=== PATIENT | female | born 1940 | race Caucasian/White ===

== ENCOUNTER 2020-08-03 12:14 | Inpatient (IN) | payer OTHER, SELFPAY ==
[~2020-08-03] VITALS: Ht 160 cm; Wt 64.1 kg
[~2020-08-03 12:14] MED LIST: ERGO400T7 PO; FOLI-43 PO; METH2.5T PO; NORCO5 PO; PRED5TAB3 PO
[2020-08-03 12:17] VITALS: BP_SYST 152
--- NOTE | 2020-08-03 12:21 | NUR ---
ER Dr. Chase at bedside examining patient.
--- NOTE | 2020-08-03 12:21 | NUR ---
Patient to ER bed 06 to gown for evaluation. Side rails up.
[2020-08-03] MEDS ORDERED: HYDR-4273 PO (12:33)
[2020-08-03] MEDS ORDERED: LIP10 PO (12:33)
[2020-08-03] MEDS ORDERED: ZOLP10TA2 PO (12:33)
[2020-08-03] MEDS ORDERED: VIT1TABL67 PO (12:33)
[2020-08-03] MEDS ORDERED: VALS80TA2 PO (12:33)
[2020-08-03] MEDS ORDERED: METH2.5T PO (12:33)
[2020-08-03] MEDS ORDERED: ASPI-1155 PO (12:33)
[2020-08-03] MEDS ORDERED: METH2.5S PO (12:33)
[2020-08-03] MEDS ORDERED: PRED2.5T4 PO (12:33)
[2020-08-03] MEDS ORDERED: FOLI-43 PO (12:33)
[2020-08-03] MEDS ORDERED: SULF500T60 PO (12:33)
--- NOTE | 2020-08-03 12:33 | NUR ---
Medication reconciliation completed with information provided by patient. Any prior medication reconciliation on file was reviewed and corrected.
[2020-08-03 12:52] LABS: BASOPHILS % (AUTO) 0.3 % (0.0-2.0); EOSINOPHILS # (AUTO) 0.1 K/uL (0.0-0.4); EOSINOPHILS % (AUTO) 1.2 % (0.0-4.0); HEMATOCRIT 39.8 % (36-48); LYMPHOCYTES # (AUTO) 0.7 K/uL (1.0-5.5); LYMPHOCYTES % (AUTO) 9.6 % (20.5-51.5); MEAN CORPUSCULAR HEMOGLOBIN 34 pg (27-31); MEAN CORPUSCULAR HGB CONC 33 % (32-36); MEAN CORPUSCULAR VOLUME 103 fL (79.0-98.0); MONOCYTES # (AUTO) 0.5 K/uL (0.0-1.0); MONOCYTES % (AUTO) 7.8 % (1.7-9.3); NEUTROPHILS # (AUTO) 5.5 K/uL (1.8-7.7); NEUTROPHILS % (AUTO) 81.1 % (40.0-70.0); PLATELET COUNT (AUTO) 245 K/uL (130-430); RED BLOOD CELL COUNT(AUTO) 3.86 MIL/uL (4.2-6.2); RED CELL DISTRIBUTION WIDTH 17.4 % (9.0-15.0); WHITE BLOOD COUNT (AUTO) 6.8 K/uL (4.8-10.8)
--- NOTE | 2020-08-03 13:09 | NUR ---
Report recieved from TAVON Erwin for continuation of care. Patient is in her gurney resting. She states whenever she gets up, she feels SOB. 3+ pitting to bilateral lower extremities with redness.
[2020-08-03 13:23] LABS: ANION GAP 10 (5-15); ASPARTATE AMINOTRANSFERASE 26 U/L (10-37); CALCIUM 8.3 mg/dL (8.4-11.0); CHLORIDE 106 mmol/L (98-107); CREATININE 0.71 mg/dL (0.55-1.30); GLUCOSE 89 mg/dL (70-99); POTASSIUM 4.1 mmol/L (3.5-5.1); SODIUM SERUM 143 mmol/L (136-145); TOTAL BILIRUBIN 0.4 mg/dL (0.0-1.0); UREA NITROGEN, BLOOD 13 mg/dL (8-21)
[2020-08-03 13:24] LABS: ALANINE AMINOTRANSFERASE 32 U/L (12-78); ALBUMIN 3.7 g/dL (3.4-4.8)
[2020-08-03 13:51] LABS: C-REACTIVE PROTEIN QUANT 2.4 mg/dL (0-0.5)
[2020-08-03] MEDS ORDERED: predniSONE 20 MG TABLET PO ONE (14:15)
[2020-08-03] MEDS ORDERED: IPRATROPIUM BROM 0.5 MG/2.5 ML VIAL.NEB (ATROVENT) INH ONE (14:15)
[2020-08-03] MEDS ORDERED: ALBUTEROL SULFATE 0.083% 2.5 MG/3 ML VIAL.NEB INH ONE ×2 (14:15→14:42)
[2020-08-03] MEDS ORDERED: ALBUTEROL SULFATE 0.083% 2.5 MG/3 ML VIAL.NEB INH PRN (16:45)
[2020-08-03] MEDS ORDERED: ONDANSETRON HCL 4 MG/2 ML VIAL IVP PRN (16:45)
[2020-08-03] MEDS ORDERED: ACETAMINOPHEN 325 MG TABLET PO PRN (16:45)
[2020-08-03] MEDS ORDERED: ZOLPIDEM TARTRATE 5 MG TABLET PO PRN (16:45)
[2020-08-03] MEDS ORDERED: HYDROcodone/ACETAMIN 7.5-325 MG TAB PO SCH (16:45)
[2020-08-03] MEDS ORDERED: 0.45% NS 250 ML IV ONE (16:45)
[2020-08-03 17:32] VITALS: BP_SYST 133
[2020-08-03] MEDS: cefTRIAXone 1 GM IVPB PREMIX 50 ML IV SCH (17:58)
[2020-08-03] MEDS: AZITHROMYCIN 250 MG in NS 250 ML IV SCH (17:59)
--- NOTE | 2020-08-03 18:19 | NUR ---
Patient moved to hallway 3.
--- NOTE | 2020-08-03 18:22 | NUR ---
Report given to TAVON Erwin.
--- NOTE | 2020-08-03 18:23 | NUR ---
Called patient's friend, Charley, at her request at [phone].
--- NOTE | 2020-08-03 18:40 | NUR ---
SHARA TO ASSUME CARE, CALM, ALERT, SKIN WARM AND DRY. SITTING UP EATING MEAL. TOLERATING WELL.
--- NOTE | 2020-08-03 19:37 | NUR ---
CALM, ALERT, RESP UNLABORED, CLEAR MENTATION AND SPEECH, SKIN WARM AND DRY. DENIES CP/SOB
[2020-08-03] MEDS ORDERED: ENOXAPARIN SODIUM 40 MG/0.4 ML SYRINGE SUBCUT SCH (21:00)
[2020-08-03] MEDS: OSELTAMIVIR PHOSPHATE 75 MG CAPSULE PO SCH (21:21)
[2020-08-03] MEDS: FAMOTIDINE PF 20 MG/2 ML VIAL IVP SCH (21:22)
[2020-08-03] MEDS: methylPREDNISolone SOD SUCC 40 MG/ML VIAL IVP SCH (21:22)
[2020-08-03] MEDS: NORMAL SALINE 5 ML DISP.SYRIN IVF SCH (21:24)
[2020-08-03] MEDS: sulfASALAZINE 500 MG TABLET (AZULFIDINE) PO SCH (21:35)
[2020-08-03] MEDS: ASCORBIC ACID 500 MG TABLET PO SCH (21:35)
--- NOTE | 2020-08-03 22:43 | NUR ---
UP AMBULATING TO BATHROOM. STEADY GAIT
--- NOTE | 2020-08-03 23:04 | NUR ---
Received report from TAVON Erwin.
--- NOTE | 2020-08-03 23:22 | NUR ---
A-FIB ON MONITOR. EKG. PAGE TO
[2020-08-03] MEDS ORDERED: DILTIAZEM HCL 125 MG/25 ML VIAL IV ONE (23:38)
[2020-08-03] MEDS ORDERED: DILTIAZEM HCL 25 MG/5 ML VIAL IVP ONE (23:45)
--- NOTE | 2020-08-03 23:50 | NUR ---
SPOKE WITH NORA. ORDERS RECEIVED
--- NOTE | 2020-08-04 00:24 | NUR ---
PT MOVED TO BED 8, ATTACHED TO MONITOR
--- NOTE | 2020-08-04 00:32 | NUR ---
Provided [place] and Pillow for patient as request.
--- NOTE | 2020-08-04 00:43 | NUR ---
Patient is sleeping, HR 108, Oxygen 95 % [place] 3 L/min.
--- NOTE | 2020-08-04 00:58 | NUR ---
Spoke with daughter (Cristopher Chase) to update her status.
--- NOTE | 2020-08-04 02:13 | NUR ---
Patient will be admitted to care of . Admitted to TELE unit. Will go to room 115B. Belongings list completed. Complete and up to date summary report printed. SBAR report to be given at bedside with opportunity for questions.
[2020-08-04 02:30] VITALS: BP_SYST 148
--- NOTE | 2020-08-04 02:30 | NUR ---
ADMISSION NOTE Received patient from ER via gurkatelyn, received report from December RN. Patient admitted with diagnosis of Cellulitis, COPD, Flu. Received report that patient is positive for Influenza A and was negative for Covid rapid. Patient on Oxygen and desaturates quickly. Patient oriented to hospital routine, call light, toileting and safety-patient verbalized understanding.
--- NOTE | 2020-08-04 02:35 | NUR ---
INITIAL NOTES Patient resting, catching breath after going to the restroom without oxygen for a short time period. IV sites on Right arm patent, dressings c/d/i. Oriented patient to plan of care. Call light within reach, bed alarm on, bed at lowest position. Will continue to monitor.
--- NOTE | 2020-08-04 03:20 | NUR ---
RECEIVED REPORT THAT PCR OF COVID IS PENDING. PATIENT IN NEGATIVE PRESSURE ROOM AT THIS TIME.
--- NOTE | 2020-08-04 03:24 | NUR ---
CONSULTATION PAGED/CALLED Reason for Consultation: COPD Person Who was Notified: PAVAN Consulting Physician: JOANNA Supervisor Dumping Specialty: [] Ordering Physician: WALE
--- NOTE | 2020-08-04 07:20 | NUR ---
CLOSING NOTES PATIENT RESTING, NO SIGNS OF DISTRESS NOTED. IV SITE PATENT, NPO ALL NIGHT. ALL NEEDS MET THROUGHOUT SHIFT. WILL ENDORSE CARE TO ONCOMING SHIFT.
[2020-08-04 08:30] VITALS: BP_SYST 120
[2020-08-04] MEDS ORDERED: DILTIAZEM HCL 25 MG/5 ML VIAL IVP PRN (08:30)
--- NOTE | 2020-08-04 08:30 | NUR ---
Initial note: Patient is alert, oriented x4, HOONAH , On Oxygen 2 L/M via NC, no SOB, ambulates well to the bathroom but needs continuous Oxygen. Both lower legs are redness and swollen, edema +2.
[2020-08-04] MEDS ORDERED: VALSARTAN 80 MG TABLET (DIOVAN) PO SCH (09:00)
[2020-08-04] MEDS ORDERED: ENOXAPARIN SODIUM 40 MG/0.4 ML SYRINGE SUBCUT SCH (09:00)
[2020-08-04] MEDS: ASPIRIN 81 MG TAB.CHEW PO SCH (09:04)
[2020-08-04] MEDS: NORMAL SALINE 5 ML DISP.SYRIN IVF SCH ×3 (09:04→21:00)
[2020-08-04] MEDS: methylPREDNISolone SOD SUCC 40 MG/ML VIAL IVP SCH ×2 (09:04→21:00)
[2020-08-04] MEDS: FAMOTIDINE PF 20 MG/2 ML VIAL IVP SCH ×2 (09:04→21:00)
[2020-08-04] MEDS: ASCORBIC ACID 500 MG TABLET PO SCH ×2 (09:05→21:00)
[2020-08-04] MEDS: CHOLECALCIFEROL (VITAMIN D3) 5,000 UNIT TABLET PO SCH (09:05)
[2020-08-04] MEDS: ENOXAPARIN SODIUM 60 MG/0.6 ML SYRINGE SUBCUT SCH ×2 (09:05→21:00)
[2020-08-04] MEDS: LOSARTAN POTASSIUM 50 MG TABLET (COZAAR) PO SCH (09:06)
[2020-08-04] MEDS: FOLIC ACID 1 MG TABLET PO SCH (09:06)
[2020-08-04] MEDS: METOPROLOL TARTRATE 25 MG TABLET PO SCH ×2 (09:06→21:00)
[2020-08-04] MEDS: OSELTAMIVIR PHOSPHATE 75 MG CAPSULE PO SCH ×2 (09:06→21:00)
[2020-08-04] MEDS: sulfASALAZINE 500 MG TABLET (AZULFIDINE) PO SCH ×2 (09:06→21:00)
[2020-08-04] MEDS: ATORVASTATIN 10 MG TABLET PO SCH (09:06)
[2020-08-04 10:14] LABS: BASOPHILS % (AUTO) 0.1 % (0.0-2.0); HEMATOCRIT 42.9 % (36-48); HEMOGLOBIN 14.2 g/dL (12.0-16.0); LYMPHOCYTES # (AUTO) 0.6 K/uL (1.0-5.5); LYMPHOCYTES % (AUTO) 6.4 % (20.5-51.5); MEAN CORPUSCULAR HEMOGLOBIN 34 pg (27-31); MEAN CORPUSCULAR HGB CONC 33 % (32-36); MEAN CORPUSCULAR VOLUME 103 fL (79.0-98.0); MONOCYTES # (AUTO) 0.6 K/uL (0.0-1.0); MONOCYTES % (AUTO) 5.9 % (1.7-9.3); NEUTROPHILS # (AUTO) 8.6 K/uL (1.8-7.7); NEUTROPHILS % (AUTO) 87.6 % (40.0-70.0); PLATELET COUNT (AUTO) 276 K/uL (130-430); RED BLOOD CELL COUNT(AUTO) 4.16 MIL/uL (4.2-6.2); RED CELL DISTRIBUTION WIDTH 17.6 % (9.0-15.0); WHITE BLOOD COUNT (AUTO) 9.8 K/uL (4.8-10.8)
[2020-08-04 10:37] LABS: ALANINE AMINOTRANSFERASE 41 U/L (12-78); ALBUMIN 3.5 g/dL (3.4-4.8); ANION GAP 10 (5-15); ASPARTATE AMINOTRANSFERASE 37 U/L (10-37); CALCIUM 8.2 mg/dL (8.4-11.0); CHLORIDE 105 mmol/L (98-107); CREATININE 0.73 mg/dL (0.55-1.30); GLUCOSE 119 mg/dL (70-99); POTASSIUM 4.1 mmol/L (3.5-5.1); SODIUM SERUM 142 mmol/L (136-145); TOTAL BILIRUBIN 0.5 mg/dL (0.0-1.0); UREA NITROGEN, BLOOD 12 mg/dL (8-21)
[2020-08-04] MEDS ORDERED: AMIODARONE HCL 200 MG TABLET PO ONE (10:45)
--- NOTE | 2020-08-04 10:47 | NUR ---
INFORMED US JASWINDER FRANK RN, PLA TO GIVE 400 MG AMIODARONE STAT Addendum: 08/04/20 at 1049 by Ludivina Mccray MT/US PER DR MARSHALL
[2020-08-04] MEDS: FUROSEMIDE 20 MG/2 ML VIAL IVP SCH ×2 (10:52→21:00)
--- NOTE | 2020-08-04 11:52 | NUR ---
informed TAVON parra to tell TAVON LACY that pt is off monitor.
[2020-08-04 12:00] VITALS: BP_SYST 135
[2020-08-04] MEDS: cefTRIAXone 1 GM IVPB PREMIX 50 ML IV SCH (17:00)
[2020-08-04 17:06] VITALS: BP_SYST 125
[2020-08-04] MEDS: AZITHROMYCIN 250 MG in NS 250 ML IV SCH (18:07)
[2020-08-04 20:10] VITALS: BP_SYST 139
[2020-08-04] MEDS: AMIODARONE HCL 200 MG TABLET PO SCH (21:00)
[2020-08-05 00:10] VITALS: BP_SYST 144
[2020-08-05] MEDS: NORMAL SALINE 5 ML DISP.SYRIN IVF SCH ×3 (06:15→22:15)
[2020-08-05 08:00] VITALS: BP_SYST 155
[2020-08-05 08:18] LABS: BASOPHILS % (AUTO) 0.1 % (0.0-2.0); HEMATOCRIT 39.7 % (36-48); LYMPHOCYTES # (AUTO) 0.7 K/uL (1.0-5.5); LYMPHOCYTES % (AUTO) 3.9 % (20.5-51.5); MEAN CORPUSCULAR HEMOGLOBIN 34 pg (27-31); MEAN CORPUSCULAR HGB CONC 33 % (32-36); MEAN CORPUSCULAR VOLUME 103 fL (79.0-98.0); MONOCYTES # (AUTO) 1.1 K/uL (0.0-1.0); MONOCYTES % (AUTO) 6.2 % (1.7-9.3); NEUTROPHILS # (AUTO) 15.5 K/uL (1.8-7.7); NEUTROPHILS % (AUTO) 89.8 % (40.0-70.0); PLATELET COUNT (AUTO) 288 K/uL (130-430); RED BLOOD CELL COUNT(AUTO) 3.85 MIL/uL (4.2-6.2); RED CELL DISTRIBUTION WIDTH 17.4 % (9.0-15.0); WHITE BLOOD COUNT (AUTO) 17.3 K/uL (4.8-10.8)
[2020-08-05] MEDS: OSELTAMIVIR PHOSPHATE 75 MG CAPSULE PO SCH ×2 (08:44→22:15)
[2020-08-05] MEDS: CHOLECALCIFEROL (VITAMIN D3) 5,000 UNIT TABLET PO SCH (08:44)
[2020-08-05] MEDS: sulfASALAZINE 500 MG TABLET (AZULFIDINE) PO SCH ×2 (08:44→22:15)
[2020-08-05] MEDS: ASPIRIN 81 MG TAB.CHEW PO SCH (08:44)
[2020-08-05] MEDS: METOPROLOL TARTRATE 25 MG TABLET PO SCH ×2 (08:45→22:15)
[2020-08-05] MEDS: ATORVASTATIN 10 MG TABLET PO SCH (08:45)
[2020-08-05] MEDS: ASCORBIC ACID 500 MG TABLET PO SCH ×2 (08:45→22:15)
[2020-08-05] MEDS: FAMOTIDINE PF 20 MG/2 ML VIAL IVP SCH ×2 (08:46→22:15)
[2020-08-05] MEDS: AMIODARONE HCL 200 MG TABLET PO SCH ×2 (08:46→22:15)
[2020-08-05] MEDS: LOSARTAN POTASSIUM 50 MG TABLET (COZAAR) PO SCH (08:46)
[2020-08-05] MEDS: FOLIC ACID 1 MG TABLET PO SCH (08:46)
[2020-08-05] MEDS: FUROSEMIDE 20 MG/2 ML VIAL IVP SCH ×2 (08:47→22:15)
[2020-08-05] MEDS: methylPREDNISolone SOD SUCC 40 MG/ML VIAL IVP SCH ×2 (08:47→22:15)
[2020-08-05] MEDS: ENOXAPARIN SODIUM 60 MG/0.6 ML SYRINGE SUBCUT SCH (08:48)
[2020-08-05 08:49] LABS: ALANINE AMINOTRANSFERASE 64 U/L (12-78); ALBUMIN 3.5 g/dL (3.4-4.8); ANION GAP 9 (5-15); ASPARTATE AMINOTRANSFERASE 50 U/L (10-37); CALCIUM 8.4 mg/dL (8.4-11.0); CHLORIDE 104 mmol/L (98-107); CREATININE 0.76 mg/dL (0.55-1.30); GLUCOSE 111 mg/dL (70-99); POTASSIUM 3.8 mmol/L (3.5-5.1); SODIUM SERUM 143 mmol/L (136-145); THYROID STIMULATING HORMONE 0.49 uIu/mL (0.36-3.74); TOTAL BILIRUBIN 0.5 mg/dL (0.0-1.0); UREA NITROGEN, BLOOD 22 mg/dL (8-21)
--- NOTE | 2020-08-05 09:18 | NUR ---
PHYSICAL THERAPY EVALUATION WAS PERFORMED YESTERDAY. PLEASE REFER TO FOR DETAILS AND RECOMMENDATION TO USE THE FWW.
[2020-08-05 09:21] LABS: CHOLESTEROL 178 mg/dL (<200); HDL CHOLESTEROL 77 mg/dL (>55); LDL CHOLESTEROL 93 mg/dL (<100); TRIGLYCERIDES 84 mg/dL (30-150)
--- NOTE | 2020-08-05 14:50 | NUR ---
received report from felix castellano. pt stable at this time.
[2020-08-05] MEDS: cefTRIAXone 1 GM IVPB PREMIX 50 ML IV SCH (15:45)
[2020-08-05 16:00] VITALS: BP_SYST 144
[2020-08-05] MEDS: AZITHROMYCIN 250 MG in NS 250 ML IV SCH (17:50)
--- NOTE | 2020-08-05 17:50 | NUR ---
PT REPORTED FALL LAST NIGHT administered iv abx as ordered per md, education given, tolerated well. pt reported fall last night at around 1930, stated that she did not tell anyone. conversation: pt: "my bottom hurts." rn: "how come?" pt: "i fell last night, but i didn't tell anyone." rn: "oh no, why didn't you tell anyone? that's an important thing to tell us, we don't want you getting hurt. use the call light if you need us." pt: "i didn't want anyone getting in trouble." pt stated her bottom is "black and purple" and i asked her if i can see it, pt stated "okay but you can't tell anyone." emphasized to pt to not worry about anyone getting in trouble, and that her safety is our priority. pt consented to assess her bottom, bottom has ecchymosis noted and is firm, no skin break. stated to pt to use call light when getting out of bed, and told her that bed alarm will be turned on. pt verbalized understanding. TAVON Braysignals collector/analyst nurse aware.
--- NOTE | 2020-08-05 18:20 | NUR ---
assisted pt to bathroom with walker, tolerated well. assisted pt back to bed, tolerated well. bed alarm on. continue to monitor.
--- NOTE | 2020-08-05 19:20 | NUR ---
closing notes pt awake and alert. nonlabored breathing noted, receiving o2 at 2lpm via nasal cannula, tolerating well. iv line intact and patent, no signs of infiltration noted. no acute distress noted. all needs met. call light in reach. fall, aspiration, and isolation precautions in place. endorsed care to felix cordero including pt's stated fall last night. unable to take a photo during this shift, rn verbalized understanding.
[2020-08-05 20:00] VITALS: BP_SYST 158
--- NOTE | 2020-08-05 20:00 | NUR ---
RN ROUNDS/EDUCATION: Upon assessing patient she states she fell two nights ago but did not report fall to the nurse. Patient has a bruise on her right buttock. Patient does not recall how or what time fall happened and declined any pain at this time.
--- NOTE | 2020-08-05 21:00 | NUR ---
Patient's bed alarm went off. Upon entering room patient was out of bed and walking towards bathroom. Patient appears weak despite using walker. I reminded patient to use the call light for assistance before getting out of bed, she verbalized understanding and states will call. I assisted patient back to bed safely.
[2020-08-05] MEDS: APIXABAN 2.5 MG TABLET PO SCH (22:15)
[2020-08-06] VITALS: BP_SYST 149
--- NOTE | 2020-08-06 | NUR ---
RN ROUNDS: Patient's alarm went off once again. I reminded patient to use the call light for assistance. Patient states she does not find it necessary as she uses her walking. I re educated patient and informed her that we want to prevent injuries during her stay and due to weakness she needs further assistance, she verbalized understanding and states will use call light for assistance. Will continue to monitor patient.
[2020-08-06] MEDS: NORMAL SALINE 5 ML DISP.SYRIN IVF SCH (05:30)
--- NOTE | 2020-08-06 05:30 | NUR ---
RN ROUNDS: Upon entering room, the patient's bed alarm was went off. She was found on the other side of the bed walking around without her walker and did not use the call light. I assisted patient back to bed and reminded her about calling me for assistance. Patient states she will not call because she does not want our help. I reminded patient that her safety is our priority and placed call light next to her. I oriented patient to room and the use of call light. Bed alarm was turned back on.
--- NOTE | 2020-08-06 07:30 | NUR ---
CLOSING NOTES: Patient is in stable condition and with no injuries throughout shift. I have endorsed care to dayshift nurse and informed her of patient refusal to call for assistance.
[2020-08-06 08:00] VITALS: BP_SYST 154
--- NOTE | 2020-08-06 08:30 | NUR ---
Initial note: Patient is alert, oriented x4, On Oxygen 2 L/M via NC, no SOB. She ambulates well by her self to the bath room with a walker. Patient has fallen few night ago. She has bruises on he back, right hip, and right elbow.
[2020-08-06] MEDS: ATORVASTATIN 10 MG TABLET PO SCH (08:34)
[2020-08-06] MEDS: APIXABAN 2.5 MG TABLET PO SCH (08:35)
[2020-08-06] MEDS: sulfASALAZINE 500 MG TABLET (AZULFIDINE) PO SCH (08:36)
[2020-08-06] MEDS: FAMOTIDINE PF 20 MG/2 ML VIAL IVP SCH (08:37)
[2020-08-06] MEDS: FOLIC ACID 1 MG TABLET PO SCH (08:37)
[2020-08-06] MEDS: CHOLECALCIFEROL (VITAMIN D3) 5,000 UNIT TABLET PO SCH (08:38)
[2020-08-06] MEDS: ASCORBIC ACID 500 MG TABLET PO SCH (08:38)
[2020-08-06] MEDS: OSELTAMIVIR PHOSPHATE 75 MG CAPSULE PO SCH (08:41)
[2020-08-06] MEDS: methylPREDNISolone SOD SUCC 40 MG/ML VIAL IVP SCH (08:41)
[2020-08-06] MEDS: AMIODARONE HCL 200 MG TABLET PO SCH (09:00)
[2020-08-06] MEDS: FUROSEMIDE 20 MG/2 ML VIAL IVP SCH (09:00)
--- NOTE | 2020-08-06 09:00 | NUR ---
round: , Senior Project Coordinator, makes round, and states patient cleared to go home. Marcelo Davalos makes round the room. Inform him that the patient did fall the other night. MD saw the bruise on her right elbow and wants to do X-ray. But she said no , states she did that all the time. And she insisting to go home today, but Dr. Robertson wants her to stay 1 more day. She refuses and willing to sign AMA.
[2020-08-06] MEDS: METOPROLOL TARTRATE 25 MG TABLET PO SCH (09:01)
[2020-08-06] MEDS: LOSARTAN POTASSIUM 50 MG TABLET (COZAAR) PO SCH (09:01)
[2020-08-06] MEDS ORDERED: AZIT250T PO (09:16)
[2020-08-06] MEDS ORDERED: ALBMDI INH (09:16)
[2020-08-06] MEDS ORDERED: ASC500 PO (09:16)
[2020-08-06] MEDS ORDERED: CHOL500013 PO (09:16)
[2020-08-06] MEDS ORDERED: AMI200 PO (09:16)
[2020-08-06] MEDS ORDERED: DOXY100T2 PO (09:17)
[2020-08-06] MEDS ORDERED: FURO-150 PO (09:21)
[2020-08-06] MEDS ORDERED: DEC1 PO (09:21)
[2020-08-06] MEDS ORDERED: OSEL75CA PO (09:21)
--- NOTE | 2020-08-06 10:15 | NUR ---
IV sites removed, apply pressure dressing, no sign of bleeding.
--- NOTE | 2020-08-06 10:15 | NUR ---
AMA signed: Patient has signed AMA form. Patient's daughter,Kayley, has called and concern about the patient leaving AMA. She said she will call her brother to talk to the patient to change her mind to stay. Will F/U on the decision.
[2020-08-06 11:59] VITALS: BP_SYST 151
[2020-08-06 12:15] LABS: ALANINE AMINOTRANSFERASE 61 U/L (12-78); ALBUMIN 4.1 g/dL (3.4-4.8); ANION GAP 11 (5-15); ASPARTATE AMINOTRANSFERASE 31 U/L (10-37); CALCIUM 8.6 mg/dL (8.4-11.0); CHLORIDE 101 mmol/L (98-107); CREATININE 0.92 mg/dL (0.55-1.30); GLUCOSE 101 mg/dL (70-99); POTASSIUM 3.5 mmol/L (3.5-5.1); SODIUM SERUM 143 mmol/L (136-145); TOTAL BILIRUBIN 0.5 mg/dL (0.0-1.0); UREA NITROGEN, BLOOD 22 mg/dL (8-21)
[2020-08-06 12:35] VITALS: BP_SYST 151
--- NOTE | 2020-08-06 13:00 | NUR ---
UT home ordered: Marcelo Osuna has called and has ordered to UT patient home . He sent E-prescription to the pharmacy. Patient and her family are informed.
--- NOTE | 2020-08-06 14:15 | NUR ---
DC home: Patient's is in the front to bean picker machine operator the patient. Patient is stable .Give patient DC instruction, and medication reconciliation with verbalized understanding. Wheel the patient out to private vehicle with her as the form setter/driver.
== END 2020-08-06 14:15 | disposition home or self-care (01) | DRG 177 ==
LOC: SED 12:14 → STU 15:58
PROVIDERS: ADMIT Internal Medicine; ATTEND Internal Medicine
DX: U07.1 COVID-19 (principal); J96.01 Acute respiratory failure with hypoxia; J12.89 Other viral pneumonia; I48.20 Chronic atrial fibrillation, unspecified; J44.0 Chronic obstructive pulmonary disease with (acute) lower respiratory infection; J44.1 Chronic obstructive pulmonary disease with (acute) exacerbation; J91.8 Pleural effusion in other conditions classified elsewhere; J10.1 Influenza due to other identified influenza virus with other respiratory manifestations; G89.29 Other chronic pain; E78.5 Hyperlipidemia, unspecified; F03.90 Unspecified dementia, unspecified severity, without behavioral disturbance, psychotic disturbance, mood disturbance, and anxiety; I11.0 Hypertensive heart disease with heart failure; I48.0 Paroxysmal atrial fibrillation; M06.9 Rheumatoid arthritis, unspecified; I50.9 Heart failure, unspecified; Z87.891 Personal history of nicotine dependence; Z90.710 Acquired absence of both cervix and uterus
CPT/HCPCS: 36415; 71045; 80053; 80061; 83605; 83880; 84443-TC; 84484; 85025; 85379; 86140; 86710; 93005; 93306; 94640; G0378; G9035; J0456; J0696; J1030; J1650; J1940; J3490; J7050; J7512; J7613; U0003

== ENCOUNTER 2021-04-13 20:28 | Inpatient (IN) | payer OTHER, SELFPAY ==
[~2021-04-13] VITALS: Ht 167.6 cm; Wt 64.9 kg
[~2021-04-13 20:28] MED LIST changes: +ALBMDI INH; +AMIO200T66 PO; +ASC500 PO; +CHOL500013 PO; +DEC1 PO; +DOXY100T2 PO; +FURO-150 PO; +HYDR-4273 PO; +LIP10 PO; +METH2.5S PO; +OSEL75CA PO; +PRED2.5T4 PO; +SULF500T60 PO; +VALS80TA2 PO; +VIT1TABL67 PO; +ZIT250 PO; +ZOLP10TA2 PO
[2021-04-13 20:35] VITALS: BP_SYST 128
[2021-04-13] MEDS ORDERED: DILTIAZEM HCL 25 MG/5 ML VIAL IVP ONE ×2 (21:00→21:30)
[2021-04-13] MEDS ORDERED: APIX5TAB4 PO (21:09)
[2021-04-13] MEDS ORDERED: DILT30TA36 PO (21:09)
[2021-04-13] MEDS ORDERED: PRED10TA PO (21:09)
[2021-04-13] MEDS ORDERED: MELA5TAB21 PO (21:09)
[2021-04-13] MEDS ORDERED: METO25TA6 PO (21:09)
[2021-04-13] MEDS ORDERED: FURO-149 PO (21:09)
[2021-04-13] MEDS ORDERED: ZOLP5TAB2 PO (21:09)
[2021-04-13] MEDS ORDERED: NS 500 ML IV ONE (21:15)
[2021-04-13 21:50] LABS: BASOPHILS % (AUTO) 0.2 % (0.0-2.0); EOSINOPHILS % (AUTO) 0.1 % (0.0-4.0); HEMATOCRIT 32.6 % (36-48); HEMOGLOBIN 10.8 g/dL (12.0-16.0); LYMPHOCYTES # (AUTO) 0.7 K/uL (1.0-5.5); LYMPHOCYTES % (AUTO) 5.1 % (20.5-51.5); MEAN CORPUSCULAR HEMOGLOBIN 35 pg (27-31); MEAN CORPUSCULAR HGB CONC 33 % (32-36); MEAN CORPUSCULAR VOLUME 107 fL (79.0-98.0); MONOCYTES % (AUTO) 6.9 % (1.7-9.3); NEUTROPHILS # (AUTO) 12.2 K/uL (1.8-7.7); NEUTROPHILS % (AUTO) 87.7 % (40.0-70.0); PLATELET COUNT (AUTO) 409 K/uL (130-430); RED BLOOD CELL COUNT(AUTO) 3.05 MIL/uL (4.2-6.2); RED CELL DISTRIBUTION WIDTH 17.1 % (9.0-15.0); WHITE BLOOD COUNT (AUTO) 13.9 K/uL (4.8-10.8)
[2021-04-13 22:01] LABS: INR 1.4 (0.8-1.2); PROTHROMBIN TIME 14.7 SECS (9.5-12.5)
[2021-04-13 22:16] LABS: ANION GAP 6 (5-15); CALCIUM 9.1 mg/dL (8.4-11.0); CHLORIDE 96 mmol/L (98-107); CREATININE 0.99 mg/dL (0.55-1.30); GLUCOSE 136 mg/dL (70-99); POTASSIUM 3.9 mmol/L (3.5-5.1); SODIUM SERUM 136 mmol/L (136-145); UREA NITROGEN, BLOOD 24 mg/dL (8-21)
[2021-04-13 22:21] LABS: ALANINE AMINOTRANSFERASE 63 U/L (12-78); ASPARTATE AMINOTRANSFERASE 79 U/L (10-37); LACTATE DEHYDROGENASE 315 U/L (81-234); TOTAL BILIRUBIN 1.2 mg/dL (0.0-1.0)
[2021-04-13 22:37] LABS: C-REACTIVE PROTEIN QUANT 4.6 mg/dL (0-0.5)
[2021-04-13 22:44] LABS: FIBRINOGEN 349 mg/dL (200-400)
[2021-04-13] MEDS ORDERED: DILTIAZEM HCL 30 MG TABLET PO ONE (23:00)
[2021-04-13] MEDS ORDERED: FUROSEMIDE 20 MG/2 ML VIAL IVP ONE (23:00)
[2021-04-13 23:43] LABS: BILIRUBIN,URINE NEGATIVE (NEGATIVE); BLOOD, URINE NEGATIVE (NEGATIVE); CLARITY/URINE CLEAR (CLEAR); COLOR,URINE YELLOW (YELLOW); GLUCOSE,URINE NEGATIVE (NEGATIVE); KETONES,URINE NEGATIVE (NEGATIVE); LEUKOCYTE ESTERASE ,URINE NEGATIVE (NEGATIVE); NITRITE, URINE NEGATIVE (NEGATIVE); PROTEIN URINE NEGATIVE (NEGATIVE); UROBILINOGEN,URINE 0.2 (0.2-1.0)
[2021-04-14] MEDS ORDERED: HYDROcodone/ACETAMIN 5-325 MG TAB (NORCO/ VICODIN) PO PRN
[2021-04-14] MEDS ORDERED: NALOXONE HCL 0.4 MG/ML AMP (NARCAN) IVP PRN
[2021-04-14] MEDS ORDERED: AZITHROMYCIN 500 MG/VIAL (ZITHROMAX) IV ONE (00:07)
[2021-04-14] MEDS: cefTRIAXone 1 GM IVPB PREMIX 50 ML IV SCH (00:07)
[2021-04-14] MEDS: AZITHROMYCIN 500 MG in NS 250 ML IV SCH (00:07)
[2021-04-14] MEDS ORDERED: MELATONIN 3 MG TABLET PO PRN (00:15)
[2021-04-14 06:58] VITALS: BP_SYST 128
[2021-04-14 08:26] LABS: BASOPHILS % (AUTO) 0.3 % (0.0-2.0); EOSINOPHILS # (AUTO) 0.1 K/uL (0.0-0.4); EOSINOPHILS % (AUTO) 0.8 % (0.0-4.0); HEMATOCRIT 32.3 % (36-48); HEMOGLOBIN 10.6 g/dL (12.0-16.0); LYMPHOCYTES # (AUTO) 1.6 K/uL (1.0-5.5); LYMPHOCYTES % (AUTO) 14.4 % (20.5-51.5); MEAN CORPUSCULAR HEMOGLOBIN 35 pg (27-31); MEAN CORPUSCULAR HGB CONC 33 % (32-36); MEAN CORPUSCULAR VOLUME 107 fL (79.0-98.0); MONOCYTES # (AUTO) 0.9 K/uL (0.0-1.0); NEUTROPHILS # (AUTO) 8.6 K/uL (1.8-7.7); NEUTROPHILS % (AUTO) 76.5 % (40.0-70.0); PLATELET COUNT (AUTO) 378 K/uL (130-430); RED BLOOD CELL COUNT(AUTO) 3.03 MIL/uL (4.2-6.2); RED CELL DISTRIBUTION WIDTH 17.5 % (9.0-15.0); WHITE BLOOD COUNT (AUTO) 11.2 K/uL (4.8-10.8)
[2021-04-14] MEDS: METOPROLOL TARTRATE 25 MG TABLET PO SCH ×2 (08:28→20:19)
[2021-04-14] MEDS: DILTIAZEM HCL 30 MG TABLET PO SCH ×2 (08:28→20:18)
[2021-04-14] MEDS: FUROSEMIDE 40 MG TABLET PO SCH (08:29)
[2021-04-14] MEDS: predniSONE 10 MG TABLET PO SCH (08:30)
[2021-04-14] MEDS: FOLIC ACID 1 MG TABLET PO SCH (08:30)
[2021-04-14] MEDS: LOSARTAN POTASSIUM 50 MG TABLET (COZAAR) PO SCH (08:30)
[2021-04-14 08:31] LABS: ALANINE AMINOTRANSFERASE 85 U/L (12-78); ALBUMIN 2.8 g/dL (3.4-4.8); ANION GAP 6 (5-15); CALCIUM 8.4 mg/dL (8.4-11.0); CHLORIDE 98 mmol/L (98-107); CREATININE 0.82 mg/dL (0.55-1.30); GLUCOSE 100 mg/dL (70-99); POTASSIUM 3.5 mmol/L (3.5-5.1); SODIUM SERUM 140 mmol/L (136-145); TOTAL BILIRUBIN 0.7 mg/dL (0.0-1.0); UREA NITROGEN, BLOOD 20 mg/dL (8-21)
[2021-04-14] MEDS: APIXABAN 2.5 MG TABLET PO SCH ×2 (08:56→20:20)
[2021-04-14 09:02] LABS: ASPARTATE AMINOTRANSFERASE 124 U/L (10-37)
[2021-04-14 12:00] VITALS: BP_SYST 110
[2021-04-14 16:13] VITALS: BP_SYST 136
[2021-04-14 20:00] VITALS: BP_SYST 116
[2021-04-15] MEDS: AZITHROMYCIN 500 MG in NS 250 ML IV SCH (00:03)
[2021-04-15] MEDS: cefTRIAXone 1 GM IVPB PREMIX 50 ML IV SCH (00:03)
[2021-04-15 00:12] VITALS: BP_SYST 125
[2021-04-15] MEDS: ZOLPIDEM TARTRATE 5 MG TABLET PO PRN (01:27)
[2021-04-15 08:00] VITALS: BP_SYST 100
[2021-04-15] MEDS: FUROSEMIDE 40 MG TABLET PO SCH (08:52)
[2021-04-15] MEDS: LOSARTAN POTASSIUM 50 MG TABLET (COZAAR) PO SCH (08:52)
[2021-04-15] MEDS: APIXABAN 2.5 MG TABLET PO SCH ×2 (08:53→22:06)
[2021-04-15] MEDS: predniSONE 10 MG TABLET PO SCH (08:53)
[2021-04-15] MEDS: METOPROLOL TARTRATE 25 MG TABLET PO SCH ×2 (08:53→22:04)
[2021-04-15] MEDS: DILTIAZEM HCL 30 MG TABLET PO SCH ×2 (08:54→22:05)
[2021-04-15] MEDS: FOLIC ACID 1 MG TABLET PO SCH (08:55)
[2021-04-15] MEDS: ALBUTEROL MDI INHALATION 8 GM INH INH SCH (09:00)
[2021-04-15 11:37] VITALS: BP_SYST 100
[2021-04-15 15:37] VITALS: BP_SYST 99
[2021-04-15 19:55] VITALS: BP_SYST 120
[2021-04-16] VITALS: BP_SYST 117
[2021-04-16] MEDS: cefTRIAXone 1 GM IVPB PREMIX 50 ML IV SCH ×2 (00:17→23:51)
[2021-04-16] MEDS: AZITHROMYCIN 500 MG in NS 250 ML IV SCH ×2 (00:17→23:51)
[2021-04-16] MEDS: ZOLPIDEM TARTRATE 5 MG TABLET PO PRN (01:33)
[2021-04-16 06:52] LABS: BASOPHILS # (AUTO) 0.2 K/uL (0.0-0.2); EOSINOPHILS # (AUTO) 0.1 K/uL (0.0-0.4); EOSINOPHILS % (AUTO) 0.6 % (0.0-4.0); HEMATOCRIT 35.7 % (36-48); HEMOGLOBIN 11.4 g/dL (12.0-16.0); LYMPHOCYTES # (AUTO) 0.7 K/uL (1.0-5.5); LYMPHOCYTES % (AUTO) 3.9 % (20.5-51.5); MEAN CORPUSCULAR HEMOGLOBIN 35 pg (27-31); MEAN CORPUSCULAR HGB CONC 32 % (32-36); MEAN CORPUSCULAR VOLUME 109 fL (79.0-98.0); MONOCYTES # (AUTO) 1.1 K/uL (0.0-1.0); MONOCYTES % (AUTO) 5.9 % (1.7-9.3); NEUTROPHILS % (AUTO) 88.6 % (40.0-70.0); PLATELET COUNT (AUTO) 504 K/uL (130-430); RED BLOOD CELL COUNT(AUTO) 3.27 MIL/uL (4.2-6.2); RED CELL DISTRIBUTION WIDTH 17.3 % (9.0-15.0)
[2021-04-16] MEDS: FAMOTIDINE 20 MG TABLET PO SCH ×2 (07:57→21:46)
[2021-04-16] MEDS: methylPREDNISolone SOD SUCC 40 MG/ML VIAL IVP SCH ×2 (07:58→21:46)
[2021-04-16] MEDS: APIXABAN 2.5 MG TABLET PO SCH ×2 (07:58→21:47)
[2021-04-16] MEDS: FOLIC ACID 1 MG TABLET PO SCH (07:59)
[2021-04-16 08:00] VITALS: BP_SYST 114
[2021-04-16] MEDS: DILTIAZEM HCL 30 MG TABLET PO SCH ×2 (08:15→19:00)
[2021-04-16] MEDS: METOPROLOL TARTRATE 25 MG TABLET PO SCH ×2 (08:15→19:00)
[2021-04-16] MEDS: LOSARTAN POTASSIUM 50 MG TABLET (COZAAR) PO SCH (08:16)
[2021-04-16] MEDS: FUROSEMIDE 40 MG TABLET PO SCH (08:16)
[2021-04-16] MEDS: ALBUTEROL MDI INHALATION 8 GM INH INH SCH (08:21)
[2021-04-16 08:41] LABS: ALBUMIN 2.6 g/dL (3.4-4.8); ANION GAP 3 (5-15); CALCIUM 8.2 mg/dL (8.4-11.0); CHLORIDE 98 mmol/L (98-107); CREATININE 0.94 mg/dL (0.55-1.30); GLUCOSE 125 mg/dL (70-99); POTASSIUM 3.5 mmol/L (3.5-5.1); SODIUM SERUM 140 mmol/L (136-145); TOTAL BILIRUBIN 0.7 mg/dL (0.0-1.0); UREA NITROGEN, BLOOD 25 mg/dL (8-21)
[2021-04-16 08:52] LABS: ALANINE AMINOTRANSFERASE 272 U/L (12-78); ASPARTATE AMINOTRANSFERASE 290 U/L (10-37)
[2021-04-16 10:16] LABS: WHITE BLOOD COUNT (AUTO) 18.1 K/uL (4.8-10.8)
[2021-04-16 11:49] LABS: ERYTHROCYTE SEDIMENTATION RATE 8 MM/HR (0-20)
[2021-04-16 12:00] VITALS: BP_SYST 109
[2021-04-16 16:00] VITALS: BP_SYST 157
[2021-04-16 19:22] VITALS: BP_SYST 128
[2021-04-17 00:25] VITALS: BP_SYST 104
[2021-04-17] MEDS: ZOLPIDEM TARTRATE 5 MG TABLET PO PRN (01:58)
[2021-04-17 07:01] LABS: BASOPHILS % (AUTO) 0.1 % (0.0-2.0); HEMATOCRIT 33.8 % (36-48); HEMOGLOBIN 11.2 g/dL (12.0-16.0); LYMPHOCYTES # (AUTO) 0.4 K/uL (1.0-5.5); LYMPHOCYTES % (AUTO) 3.9 % (20.5-51.5); MEAN CORPUSCULAR HEMOGLOBIN 35 pg (27-31); MEAN CORPUSCULAR HGB CONC 33 % (32-36); MEAN CORPUSCULAR VOLUME 107 fL (79.0-98.0); MONOCYTES # (AUTO) 0.3 K/uL (0.0-1.0); MONOCYTES % (AUTO) 3.2 % (1.7-9.3); NEUTROPHILS # (AUTO) 9.8 K/uL (1.8-7.7); NEUTROPHILS % (AUTO) 92.8 % (40.0-70.0); PLATELET COUNT (AUTO) 451 K/uL (130-430); RED BLOOD CELL COUNT(AUTO) 3.16 MIL/uL (4.2-6.2); WHITE BLOOD COUNT (AUTO) 10.6 K/uL (4.8-10.8)
[2021-04-17 08:00] VITALS: BP_SYST 113
[2021-04-17] MEDS: ALBUTEROL MDI INHALATION 8 GM INH INH SCH (09:00)
[2021-04-17 10:03] LABS: ERYTHROCYTE SEDIMENTATION RATE 10 MM/HR (0-20)
[2021-04-17] MEDS: methylPREDNISolone SOD SUCC 40 MG/ML VIAL IVP SCH ×2 (10:19→20:12)
[2021-04-17 10:20] VITALS: BP_SYST 113
[2021-04-17] MEDS: FUROSEMIDE 40 MG TABLET PO SCH (10:20)
[2021-04-17] MEDS: METOPROLOL TARTRATE 25 MG TABLET PO SCH ×2 (10:24→20:13)
[2021-04-17] MEDS: FAMOTIDINE 20 MG TABLET PO SCH ×2 (10:24→20:12)
[2021-04-17] MEDS: DILTIAZEM HCL 30 MG TABLET PO SCH ×2 (10:25→20:14)
[2021-04-17] MEDS: LOSARTAN POTASSIUM 50 MG TABLET (COZAAR) PO SCH (10:26)
[2021-04-17] MEDS: APIXABAN 2.5 MG TABLET PO SCH ×2 (10:26→20:16)
[2021-04-17] MEDS: FOLIC ACID 1 MG TABLET PO SCH (10:28)
[2021-04-17 11:12] LABS: ALANINE AMINOTRANSFERASE 207 U/L (12-78); ALBUMIN 2.5 g/dL (3.4-4.8); ANION GAP 1 (5-15); ASPARTATE AMINOTRANSFERASE 107 U/L (10-37); C-REACTIVE PROTEIN QUANT 2.6 mg/dL (0-0.5); CALCIUM 8.3 mg/dL (8.4-11.0); CHLORIDE 99 mmol/L (98-107); CREATININE 0.75 mg/dL (0.55-1.30); GLUCOSE 120 mg/dL (70-99); POTASSIUM 3.2 mmol/L (3.5-5.1); SODIUM SERUM 140 mmol/L (136-145); TOTAL BILIRUBIN 0.8 mg/dL (0.0-1.0); UREA NITROGEN, BLOOD 24 mg/dL (8-21)
[2021-04-17] MEDS ORDERED: ROCPM1 IV (12:06)
[2021-04-17] MEDS ORDERED: AZIT500V2 IV (12:06)
[2021-04-17] MEDS ORDERED: PRED20TA PO (12:06)
[2021-04-17 13:27] VITALS: BP_SYST 110
[2021-04-17] MEDS ORDERED: POTASSIUM CHLORIDE 20 MEQ TAB.PRT.SR PO ONE (14:45)
[2021-04-17 16:06] VITALS: BP_SYST 134
[2021-04-17 20:19] VITALS: BP_SYST 126
[2021-04-17] MEDS: cefTRIAXone 1 GM IVPB PREMIX 50 ML IV SCH (23:08)
[2021-04-17] MEDS: AZITHROMYCIN 500 MG in NS 250 ML IV SCH (23:46)
[2021-04-18 00:41] VITALS: BP_SYST 128
[2021-04-18 07:15] LABS: BASOPHILS # (AUTO) 0.1 K/uL (0.0-0.2); BASOPHILS % (AUTO) 0.3 % (0.0-2.0); HEMATOCRIT 35.6 % (36-48); HEMOGLOBIN 11.7 g/dL (12.0-16.0); LYMPHOCYTES # (AUTO) 0.5 K/uL (1.0-5.5); LYMPHOCYTES % (AUTO) 2.3 % (20.5-51.5); MEAN CORPUSCULAR HEMOGLOBIN 35 pg (27-31); MEAN CORPUSCULAR HGB CONC 33 % (32-36); MEAN CORPUSCULAR VOLUME 105 fL (79.0-98.0); MONOCYTES # (AUTO) 0.7 K/uL (0.0-1.0); MONOCYTES % (AUTO) 3.3 % (1.7-9.3); NEUTROPHILS # (AUTO) 20.2 K/uL (1.8-7.7); PLATELET COUNT (AUTO) 489 K/uL (130-430); RED BLOOD CELL COUNT(AUTO) 3.39 MIL/uL (4.2-6.2); RED CELL DISTRIBUTION WIDTH 16.7 % (9.0-15.0); WHITE BLOOD COUNT (AUTO) 21.4 K/uL (4.8-10.8)
[2021-04-18 08:00] VITALS: BP_SYST 150
[2021-04-18 08:03] LABS: ANION GAP 6 (5-15); C-REACTIVE PROTEIN QUANT 1.2 mg/dL (0-0.5); CALCIUM 8.8 mg/dL (8.4-11.0); CHLORIDE 98 mmol/L (98-107); CREATININE 0.71 mg/dL (0.55-1.30); GLUCOSE 170 mg/dL (70-99); POTASSIUM 3.3 mmol/L (3.5-5.1); SODIUM SERUM 142 mmol/L (136-145); UREA NITROGEN, BLOOD 32 mg/dL (8-21)
[2021-04-18] MEDS: LOSARTAN POTASSIUM 50 MG TABLET (COZAAR) PO SCH (08:09)
[2021-04-18] MEDS: APIXABAN 2.5 MG TABLET PO SCH ×2 (08:10→21:21)
[2021-04-18] MEDS: FUROSEMIDE 40 MG TABLET PO SCH (08:10)
[2021-04-18] MEDS: FAMOTIDINE 20 MG TABLET PO SCH ×2 (08:10→21:28)
[2021-04-18] MEDS: METOPROLOL TARTRATE 25 MG TABLET PO SCH ×2 (08:10→21:19)
[2021-04-18] MEDS: methylPREDNISolone SOD SUCC 40 MG/ML VIAL IVP SCH (08:11)
[2021-04-18] MEDS: DILTIAZEM HCL 30 MG TABLET PO SCH ×2 (08:11→21:17)
[2021-04-18] MEDS: FOLIC ACID 1 MG TABLET PO SCH (08:13)
[2021-04-18] MEDS: ALBUTEROL MDI INHALATION 8 GM INH INH SCH (08:32)
[2021-04-18] MEDS ORDERED: POTASSIUM CHLORIDE 20 MEQ/PKT PACKET PO ONE (09:00)
[2021-04-18 10:51] LABS: ERYTHROCYTE SEDIMENTATION RATE 8 MM/HR (0-20)
[2021-04-18 12:20] LABS: NEUTROPHILS % (AUTO) 94.1 % (40.0-70.0)
[2021-04-18] MEDS ORDERED: MELATONIN 5 MG TABLET PO PRN (12:30)
[2021-04-18 12:55] VITALS: BP_SYST 135
[2021-04-18 16:20] VITALS: BP_SYST 125
[2021-04-18 19:00] VITALS: BP_SYST 146
[2021-04-18 20:00] VITALS: BP_SYST 146
[2021-04-18] MEDS: ACETAMINOPHEN 325 MG TABLET PO PRN (21:18)
[2021-04-18] MEDS: ZOLPIDEM TARTRATE 5 MG TABLET PO PRN (21:20)
[2021-04-19] MEDS: AZITHROMYCIN 500 MG in NS 250 ML IV SCH (00:40)
[2021-04-19 00:42] VITALS: BP_SYST 132
[2021-04-19] MEDS: cefTRIAXone 1 GM IVPB PREMIX 50 ML IV SCH (00:54)
[2021-04-19 07:43] LABS: ALANINE AMINOTRANSFERASE 147 U/L (12-78); ALBUMIN 2.7 g/dL (3.4-4.8); ANION GAP 1 (5-15); ASPARTATE AMINOTRANSFERASE 63 U/L (10-37); CALCIUM 8.7 mg/dL (8.4-11.0); CHLORIDE 101 mmol/L (98-107); CREATININE 0.74 mg/dL (0.55-1.30); GLUCOSE 149 mg/dL (70-99); SODIUM SERUM 146 mmol/L (136-145); TOTAL BILIRUBIN 0.4 mg/dL (0.0-1.0); UREA NITROGEN, BLOOD 37 mg/dL (8-21)
[2021-04-19 08:00] VITALS: BP_SYST 138
[2021-04-19] MEDS: FAMOTIDINE 20 MG TABLET PO SCH ×2 (08:04→21:06)
[2021-04-19] MEDS: LOSARTAN POTASSIUM 50 MG TABLET (COZAAR) PO SCH (08:04)
[2021-04-19] MEDS: DILTIAZEM HCL 30 MG TABLET PO SCH ×2 (08:04→21:01)
[2021-04-19] MEDS: METOPROLOL TARTRATE 25 MG TABLET PO SCH ×2 (08:04→21:04)
[2021-04-19] MEDS: FUROSEMIDE 40 MG TABLET PO SCH (08:05)
[2021-04-19] MEDS: FOLIC ACID 1 MG TABLET PO SCH (08:10)
[2021-04-19] MEDS: APIXABAN 2.5 MG TABLET PO SCH ×2 (08:11→21:03)
[2021-04-19] MEDS: ALBUTEROL SULFATE 0.083% 2.5 MG/3 ML VIAL.NEB INH PRN (08:30)
[2021-04-19] MEDS ORDERED: methylPREDNISolone SOD SUCC 40 MG/ML VIAL IVP SCH (09:00)
[2021-04-19 12:00] VITALS: BP_SYST 134
[2021-04-19 16:00] VITALS: BP_SYST 139
[2021-04-19 19:00] VITALS: BP_SYST 148
[2021-04-19 20:00] VITALS: BP_SYST 148
[2021-04-19] MEDS: ZOLPIDEM TARTRATE 5 MG TABLET PO PRN (21:01)
[2021-04-20] VITALS: BP_SYST 134
[2021-04-20] MEDS: cefTRIAXone 1 GM IVPB PREMIX 50 ML IV SCH (00:33)
[2021-04-20] MEDS: ALBUTEROL SULFATE 0.083% 2.5 MG/3 ML VIAL.NEB INH PRN ×2 (02:04→08:24)
[2021-04-20 06:48] LABS: BASOPHILS % (AUTO) 0.2 % (0.0-2.0); HEMATOCRIT 35.7 % (36-48); HEMOGLOBIN 11.4 g/dL (12.0-16.0); LYMPHOCYTES # (AUTO) 0.6 K/uL (1.0-5.5); LYMPHOCYTES % (AUTO) 3.2 % (20.5-51.5); MEAN CORPUSCULAR HEMOGLOBIN 34 pg (27-31); MEAN CORPUSCULAR HGB CONC 32 % (32-36); MEAN CORPUSCULAR VOLUME 105 fL (79.0-98.0); MONOCYTES % (AUTO) 5.5 % (1.7-9.3); NEUTROPHILS # (AUTO) 16.1 K/uL (1.8-7.7); PLATELET COUNT (AUTO) 383 K/uL (130-430); RED CELL DISTRIBUTION WIDTH 16.9 % (9.0-15.0); WHITE BLOOD COUNT (AUTO) 17.6 K/uL (4.8-10.8)
[2021-04-20 07:00] VITALS: BP_SYST 132
[2021-04-20 07:15] LABS: ALANINE AMINOTRANSFERASE 117 U/L (12-78); ALBUMIN 2.6 g/dL (3.4-4.8); ANION GAP 1 (5-15); ASPARTATE AMINOTRANSFERASE 46 U/L (10-37); CALCIUM 8.8 mg/dL (8.4-11.0); CHLORIDE 102 mmol/L (98-107); CREATININE 0.68 mg/dL (0.55-1.30); GLUCOSE 135 mg/dL (70-99); POTASSIUM 3.9 mmol/L (3.5-5.1); SODIUM SERUM 148 mmol/L (136-145); TOTAL BILIRUBIN 0.4 mg/dL (0.0-1.0); UREA NITROGEN, BLOOD 37 mg/dL (8-21)
[2021-04-20 07:40] LABS: NEUTROPHILS % (AUTO) 91.1 % (40.0-70.0)
[2021-04-20] MEDS: ALBUTEROL MDI INHALATION 8 GM INH INH SCH (08:23)
[2021-04-20] MEDS: METOPROLOL TARTRATE 25 MG TABLET PO SCH ×2 (10:19→21:02)
[2021-04-20] MEDS: methylPREDNISolone SOD SUCC 40 MG/ML VIAL IVP SCH (10:19)
[2021-04-20] MEDS: FOLIC ACID 1 MG TABLET PO SCH (10:20)
[2021-04-20] MEDS: LOSARTAN POTASSIUM 50 MG TABLET (COZAAR) PO SCH (10:21)
[2021-04-20] MEDS: FUROSEMIDE 40 MG TABLET PO SCH (10:22)
[2021-04-20] MEDS: DILTIAZEM HCL 30 MG TABLET PO SCH ×2 (10:22→21:03)
[2021-04-20] MEDS: FAMOTIDINE 20 MG TABLET PO SCH ×2 (10:23→21:02)
[2021-04-20] MEDS: APIXABAN 2.5 MG TABLET PO SCH ×2 (10:26→21:04)
[2021-04-20 12:00] VITALS: BP_SYST 137
[2021-04-20 16:44] VITALS: BP_SYST 133
[2021-04-20 19:23] LABS: BODY FLUID GLUCOSE 238 mg/dL; BODY FLUID TOTAL PROTEIN 1.3 g/dL
[2021-04-20 21:04] VITALS: BP_SYST 124
[2021-04-20] MEDS: ZOLPIDEM TARTRATE 5 MG TABLET PO PRN (21:04)
[2021-04-20 23:39] LABS: SOURCE/TYPE ,BODY FLUID PLEURAL
[2021-04-20 23:41] LABS: BF APPEARANCE UNSPUN SLIGHTLY HAZY (CLEAR); BODY FLUID SOURCE/ TYPE PLEURAL
[2021-04-20 23:42] LABS: APPEARANCE,SPUN,BODY FLUID CLEAR (CLEAR); BODY FLUID COLOR YELLOW (LT YELLOW); BODY FLUID TOTAL VOLUME 725 mL; RBC, BODY FLUID 664 /uL; WBC, BODY FLUID 356 /uL
[2021-04-20 23:43] LABS: EOSINOPHIL, BODY FLUID 0 %; LYMPHOCYTES, BODY FLUID 32 %; MONOCYTES,BODY FLUID 61 %; NEUTROPHIL, BODY FLUID 7 %
[2021-04-21 00:30] VITALS: BP_SYST 139
[2021-04-21 04:44] VITALS: BP_SYST 127
[2021-04-21 08:00] VITALS: BP_SYST 142
[2021-04-21] MEDS: DILTIAZEM HCL 30 MG TABLET PO SCH ×2 (09:00→21:52)
[2021-04-21] MEDS: LOSARTAN POTASSIUM 50 MG TABLET (COZAAR) PO SCH (09:01)
[2021-04-21] MEDS: methylPREDNISolone SOD SUCC 40 MG/ML VIAL IVP SCH (09:02)
[2021-04-21] MEDS: APIXABAN 2.5 MG TABLET PO SCH ×2 (09:04→21:53)
[2021-04-21] MEDS: FUROSEMIDE 40 MG TABLET PO SCH (09:05)
[2021-04-21] MEDS: FAMOTIDINE 20 MG TABLET PO SCH ×2 (09:19→21:52)
[2021-04-21] MEDS: FOLIC ACID 1 MG TABLET PO SCH (09:19)
[2021-04-21] MEDS: METOPROLOL TARTRATE 25 MG TABLET PO SCH ×2 (09:21→21:51)
[2021-04-21 11:31] VITALS: BP_SYST 141
[2021-04-21 16:07] VITALS: BP_SYST 126
[2021-04-21 19:00] VITALS: BP_SYST 122
[2021-04-21] MEDS: ZOLPIDEM TARTRATE 5 MG TABLET PO PRN (21:52)
[2021-04-22 00:26] VITALS: BP_SYST 121
[2021-04-22 07:41] VITALS: BP_SYST 144
[2021-04-22] MEDS: METOPROLOL TARTRATE 25 MG TABLET PO SCH ×2 (09:04→20:33)
[2021-04-22] MEDS: DILTIAZEM HCL 30 MG TABLET PO SCH ×2 (09:05→20:33)
[2021-04-22] MEDS: LOSARTAN POTASSIUM 50 MG TABLET (COZAAR) PO SCH (09:06)
[2021-04-22] MEDS: FAMOTIDINE 20 MG TABLET PO SCH ×2 (09:08→20:32)
[2021-04-22] MEDS: FUROSEMIDE 40 MG TABLET PO SCH (09:08)
[2021-04-22] MEDS: methylPREDNISolone SOD SUCC 40 MG/ML VIAL IVP SCH (09:08)
[2021-04-22] MEDS: APIXABAN 2.5 MG TABLET PO SCH ×2 (09:09→20:31)
[2021-04-22] MEDS: FOLIC ACID 1 MG TABLET PO SCH (09:19)
[2021-04-22 11:22] VITALS: BP_SYST 119
[2021-04-22 15:29] VITALS: BP_SYST 131
[2021-04-22 20:36] VITALS: BP_SYST 133
[2021-04-23] VITALS: BP_SYST 128
[2021-04-23 08:00] VITALS: BP_SYST 152
[2021-04-23 08:11] LABS: BASOPHILS % (AUTO) 0.2 % (0.0-2.0); HEMATOCRIT 37.2 % (36-48); HEMOGLOBIN 11.9 g/dL (12.0-16.0); LYMPHOCYTES # (AUTO) 0.5 K/uL (1.0-5.5); LYMPHOCYTES % (AUTO) 2.6 % (20.5-51.5); MEAN CORPUSCULAR HEMOGLOBIN 34 pg (27-31); MEAN CORPUSCULAR HGB CONC 32 % (32-36); MEAN CORPUSCULAR VOLUME 106 fL (79.0-98.0); MONOCYTES # (AUTO) 0.9 K/uL (0.0-1.0); MONOCYTES % (AUTO) 4.6 % (1.7-9.3); NEUTROPHILS # (AUTO) 18.1 K/uL (1.8-7.7); NEUTROPHILS % (AUTO) 92.6 % (40.0-70.0); PLATELET COUNT (AUTO) 343 K/uL (130-430); RED BLOOD CELL COUNT(AUTO) 3.51 MIL/uL (4.2-6.2); WHITE BLOOD COUNT (AUTO) 19.6 K/uL (4.8-10.8)
[2021-04-23] MEDS: ALBUTEROL MDI INHALATION 8 GM INH INH SCH (09:00)
[2021-04-23] MEDS: DILTIAZEM HCL 30 MG TABLET PO SCH ×2 (09:00→20:49)
[2021-04-23 09:19] LABS: ANION GAP 0 (5-15); CALCIUM 9.4 mg/dL (8.4-11.0); CHLORIDE 96 mmol/L (98-107); GLUCOSE 160 mg/dL (70-99); POTASSIUM 4.2 mmol/L (3.5-5.1); SODIUM SERUM 142 mmol/L (136-145); UREA NITROGEN, BLOOD 39 mg/dL (8-21)
[2021-04-23 10:01] VITALS: BP_SYST 128
[2021-04-23] MEDS: FOLIC ACID 1 MG TABLET PO SCH (11:13)
[2021-04-23] MEDS: methylPREDNISolone SOD SUCC 40 MG/ML VIAL IVP SCH (11:13)
[2021-04-23] MEDS: LOSARTAN POTASSIUM 50 MG TABLET (COZAAR) PO SCH (11:17)
[2021-04-23] MEDS: FAMOTIDINE 20 MG TABLET PO SCH ×2 (11:19→20:50)
[2021-04-23] MEDS: METOPROLOL TARTRATE 25 MG TABLET PO SCH ×2 (11:19→20:49)
[2021-04-23] MEDS: APIXABAN 2.5 MG TABLET PO SCH ×2 (11:21→20:51)
[2021-04-23 11:37] VITALS: BP_SYST 138
[2021-04-23 15:25] VITALS: BP_SYST 131
[2021-04-23 20:11] VITALS: BP_SYST 136
[2021-04-24 00:10] VITALS: BP_SYST 131
[2021-04-24 07:11] LABS: BASOPHILS % (AUTO) 0.2 % (0.0-2.0); HEMATOCRIT 34.6 % (36-48); LYMPHOCYTES # (AUTO) 0.6 K/uL (1.0-5.5); LYMPHOCYTES % (AUTO) 3.1 % (20.5-51.5); MEAN CORPUSCULAR HEMOGLOBIN 33 pg (27-31); MEAN CORPUSCULAR HGB CONC 32 % (32-36); MEAN CORPUSCULAR VOLUME 105 fL (79.0-98.0); MONOCYTES # (AUTO) 1.1 K/uL (0.0-1.0); MONOCYTES % (AUTO) 5.2 % (1.7-9.3); NEUTROPHILS # (AUTO) 18.9 K/uL (1.8-7.7); NEUTROPHILS % (AUTO) 91.5 % (40.0-70.0); PLATELET COUNT (AUTO) 314 K/uL (130-430); RED CELL DISTRIBUTION WIDTH 17.4 % (9.0-15.0); WHITE BLOOD COUNT (AUTO) 20.6 K/uL (4.8-10.8)
[2021-04-24 07:58] LABS: ALANINE AMINOTRANSFERASE 78 U/L (12-78); ALBUMIN 2.7 g/dL (3.4-4.8); ASPARTATE AMINOTRANSFERASE 25 U/L (10-37); CALCIUM 8.7 mg/dL (8.4-11.0); CHLORIDE 99 mmol/L (98-107); CREATININE 0.65 mg/dL (0.55-1.30); GLUCOSE 158 mg/dL (70-99); POTASSIUM 3.9 mmol/L (3.5-5.1); SODIUM SERUM 147 mmol/L (136-145); TOTAL BILIRUBIN 0.6 mg/dL (0.0-1.0); UREA NITROGEN, BLOOD 40 mg/dL (8-21)
[2021-04-24 08:00] VITALS: BP_SYST 138
[2021-04-24 08:26] LABS: ANION GAP 0 (5-15)
[2021-04-24] MEDS: ALBUTEROL MDI INHALATION 8 GM INH INH SCH (09:00)
[2021-04-24] MEDS: ALBUTEROL SULFATE 0.083% 2.5 MG/3 ML VIAL.NEB INH PRN ×2 (09:19→21:20)
[2021-04-24] MEDS: DILTIAZEM HCL 30 MG TABLET PO SCH ×2 (09:34→20:28)
[2021-04-24] MEDS: methylPREDNISolone SOD SUCC 40 MG/ML VIAL IVP SCH (09:34)
[2021-04-24] MEDS: FAMOTIDINE 20 MG TABLET PO SCH ×2 (09:37→20:28)
[2021-04-24] MEDS: METOPROLOL TARTRATE 25 MG TABLET PO SCH ×2 (09:37→20:29)
[2021-04-24] MEDS: LOSARTAN POTASSIUM 50 MG TABLET (COZAAR) PO SCH (09:37)
[2021-04-24] MEDS: FOLIC ACID 1 MG TABLET PO SCH (09:37)
[2021-04-24] MEDS: APIXABAN 2.5 MG TABLET PO SCH ×2 (09:45→20:32)
[2021-04-24 11:29] VITALS: BP_SYST 120
[2021-04-24 11:32] VITALS: BP_SYST 136
[2021-04-24 15:35] VITALS: BP_SYST 130
[2021-04-24 20:14] VITALS: BP_SYST 143
[2021-04-24] MEDS: ACETAMINOPHEN 325 MG TABLET PO PRN (20:29)
[2021-04-25] VITALS (7 sets, daily range): BP systolic 111–137
[2021-04-25] MEDS: ALBUTEROL MDI INHALATION 8 GM INH INH SCH (09:00)
[2021-04-25] MEDS: predniSONE 20 MG TABLET PO SCH (09:06)
[2021-04-25] MEDS: DILTIAZEM HCL 30 MG TABLET PO SCH ×2 (09:08→21:01)
[2021-04-25] MEDS: FAMOTIDINE 20 MG TABLET PO SCH ×2 (09:08→20:56)
[2021-04-25] MEDS: LOSARTAN POTASSIUM 50 MG TABLET (COZAAR) PO SCH (09:08)
[2021-04-25] MEDS: FOLIC ACID 1 MG TABLET PO SCH (09:08)
[2021-04-25] MEDS: METOPROLOL TARTRATE 25 MG TABLET PO SCH ×2 (09:09→21:01)
[2021-04-25] MEDS: APIXABAN 2.5 MG TABLET PO SCH ×2 (09:09→20:57)
[2021-04-25] MEDS: ALBUTEROL SULFATE 0.083% 2.5 MG/3 ML VIAL.NEB INH PRN (14:08)
[2021-04-26 00:10] VITALS: BP_SYST 124
[2021-04-26 08:00] VITALS: BP_SYST 125
[2021-04-26] MEDS: predniSONE 20 MG TABLET PO SCH (09:30)
[2021-04-26] MEDS: LOSARTAN POTASSIUM 50 MG TABLET (COZAAR) PO SCH (09:30)
[2021-04-26] MEDS: FAMOTIDINE 20 MG TABLET PO SCH (09:31)
[2021-04-26] MEDS: FOLIC ACID 1 MG TABLET PO SCH (09:31)
[2021-04-26] MEDS: DILTIAZEM HCL 30 MG TABLET PO SCH (09:31)
[2021-04-26] MEDS: APIXABAN 2.5 MG TABLET PO SCH (09:32)
[2021-04-26] MEDS: METOPROLOL TARTRATE 25 MG TABLET PO SCH (09:32)
[2021-04-26 10:22] LABS: BASOPHILS # (AUTO) 0.1 K/uL (0.0-0.2); BASOPHILS % (AUTO) 0.2 % (0.0-2.0); HEMATOCRIT 34.4 % (36-48); LYMPHOCYTES # (AUTO) 1.2 K/uL (1.0-5.5); MEAN CORPUSCULAR HEMOGLOBIN 34 pg (27-31); MEAN CORPUSCULAR HGB CONC 32 % (32-36); MEAN CORPUSCULAR VOLUME 105 fL (79.0-98.0); MONOCYTES # (AUTO) 1.6 K/uL (0.0-1.0); MONOCYTES % (AUTO) 6.8 % (1.7-9.3); PLATELET COUNT (AUTO) 328 K/uL (130-430); RED BLOOD CELL COUNT(AUTO) 3.27 MIL/uL (4.2-6.2); WHITE BLOOD COUNT (AUTO) 23.9 K/uL (4.8-10.8)
[2021-04-26 14:27] VITALS: BP_SYST 136
[2021-04-26 20:00] VITALS: BP_SYST 134
== END 2021-04-26 22:05 | DRG 193 ==
LOC: SED 20:28 → STU 23:11 → OBSVTOIN 23:11 → STU 23:15 → INTOOBSV 04-14 10:25 → OBSVTOIN 04-14 10:25 → STU 04-14 10:30
PROVIDERS: ADMIT Internal Medicine Hospice and Palliative Medicine; ATTEND Internal Medicine Hospice and Palliative Medicine
PROC: 0W993ZZ Drainage of Right Pleural Cavity, Percutaneous Approach (ICD-10-PCS; principal; 2021-04-20)
DX: J15.9 Unspecified bacterial pneumonia (principal); J96.21 Acute and chronic respiratory failure with hypoxia; E43 Unspecified severe protein-calorie malnutrition; J44.1 Chronic obstructive pulmonary disease with (acute) exacerbation; I48.20 Chronic atrial fibrillation, unspecified; J44.0 Chronic obstructive pulmonary disease with (acute) lower respiratory infection; I50.32 Chronic diastolic (congestive) heart failure; R65.10 Systemic inflammatory response syndrome (SIRS) of non-infectious origin without acute organ dysfunction; E88.09 Other disorders of plasma-protein metabolism, not elsewhere classified; R73.9 Hyperglycemia, unspecified; D64.9 Anemia, unspecified; D72.829 Elevated white blood cell count, unspecified; E78.5 Hyperlipidemia, unspecified; K80.20 Calculus of gallbladder without cholecystitis without obstruction; M05.10 Rheumatoid lung disease with rheumatoid arthritis of unspecified site; R53.81 Other malaise; I34.0 Nonrheumatic mitral (valve) insufficiency; Z20.822 Contact with and (suspected) exposure to COVID-19; E83.52 Hypercalcemia; I11.0 Hypertensive heart disease with heart failure; R13.10 Dysphagia, unspecified; Z68.23 Body mass index [BMI] 23.0-23.9, adult; Z79.01 Long term (current) use of anticoagulants; Z87.891 Personal history of nicotine dependence; Z90.710 Acquired absence of both cervix and uterus
CPT/HCPCS: 32555; 36415; 36600; 71045; 71250-TC; 76376; 76700-TC; 80048; 80053; 81003; 82550; 82728; 82803-TC; 82947; 83605; 83615; 83735; 83880; 84157; 84484; 85025; 85379; 85384; 85610-TC; 85651-TC; 85730-TC; 86140; 87040-TC; 87070-TC; 87086; 87116; 88108; 88305; 89051-TC; 89060-TC; 92610-GN; 93005; 93306; 94640; 94760; 96374; 96375; 96376; 97110-GP; 97116-GP; 97530-GP; 99291; C1729; G0378; J0456; J0696; J1030; J1940; J3490; J7050; J7512; J7613; U0003